=== PATIENT | male | born 1990 | race Caucasian/White ===

== ENCOUNTER 2020-11-19 11:57 | Emergency (ER) | payer SELFPAY ==
--- NOTE | ~2020-11-19 | CT_ITS ---
EXAMINATION: CT abdomen pelvis w con DATE: 11/19/2020 14:08 INDICATION: Epigastric abdominal pain. Nausea and vomiting. TECHNIQUE: Computed tomography (CT) of the abdomen and pelvis was performed with 100 mL Omnipaque 350 intravenous contrast. Automated exposure control and iterative reconstruction technique were employe d. The dose-length product was 374.47 mGy-cm. COMPARISON: None. FINDINGS: The visualized portions of the lung bases are clear without pneumonia or pleural effusion. The heart size is normal. No pericardial effusion. The liver, gallbladder, spleen, pancreas, adrenal glands, and kidneys are normal. There are no dilated loops of bowel. The appendix is normal. There ar e no pathologically enlarged lymph nodes. There is a small umbilical hernia containing fat. There is no free intraperitoneal fluid. There is mild lumbar spondylosis. IMPRESSION: 1. Small umbilical hernia containing fat. Reviewed, dictated and finalized at location A. INUOUS IMPROVEMENT DIRECTOR
[2020-11-19 12:21] VITALS: BP 125/61; PULSE 64; RESP 20; TEMP 36.1; O2SAT 100
[2020-11-19 12:48] LABS: Basophils Absolute Auto 0.1 K/mm3 (0.0-0.1); Basophils Percent Auto 0.4 % (0.2-1.2); Eosinophils Percent Auto 0.3 % (0-4.4); Hematocrit 44.2 % (42.0-52.0); Immature Granulocyte Absolute 0.03 K/mm3 (0.00-0.031); Immature Granulocyte Percent A 0.2 % (0-0.5); Lymphocytes Absolute Auto 1.11 K/mm3 (0.9-3.2); Lymphocytes Percent Auto 9.2 % (18.3-44.2); Mean Corpuscular HGB Conc 33.9 g/dl (32-36); Mean Corpuscular Hemoglobin 29.9 pg (26-34); Mean Platelet Volume 11.9 fl (7.4-10.4); Monocytes Absolute Auto 0.5 K/mm3 (0.1-0.6); Monocytes Percent Auto 4.5 % (2.6-8.5); Neutrophils Absolute Auto 10.3 K/mm3 (1.3-6.7); Neutrophils Percent Auto 85.4 % (45.5-73.1); Platelet Count Result 198 k/mm3 (150-375); Red Blood Count 5.02 M/mm3 (4.6-6.20); Red Cell Distribution Width 12.2 % (11.5-14.5)
[2020-11-19 12:52] LABS: Add Urine Microscopic? YES; Appearance Urine Clear (Clear); Bacteria Urine Trace /hpf; Bilirubin Urine Negative (Negative); Blood Urine Negative (Negative); Color Urine Yellow (Yellow); Glucose Urine UA Negative (Negative); Ketones Urine 1+ mg/dL (Negative); Leukocyte Esterase Ur Negative LEU/UL (Negative); Mucus Urine Heavy /lpf; Nitrate Urine Negative (Negative); Protein Urine 1+ mg/dL (Negative); RBC Urine 0-2 /hpf (0-2); Specific Grav Ur 1.025 (1.001-1.035); Urobilinogen Urine Negative mg/dL (<2.0); WBC Urine 0-3 /hpf
[2020-11-19 13:06] LABS: Alanine Aminotransferase 28 U/L (4-50); Albumin Level 4.6 g/dL (3.5-5.1); Alkaline Phosphatase 65 U/L (38-126); Anion Gap 7 mmol/L (8-16); Aspartate Amino Transferase 40 U/L (17-59); Bilirubin,Total 0.8 mg/dL (0.2-1.3); Blood Urea Nitrogen 12 mg/dL (9-20); Calcium 9.7 mg/dL (8.4-10.2); Carbon Dioxide 27 mmol/L (22-30); Chloride 107 mmol/L (98-107); Estimated CRCL calculation 113 ml/min; Estimated Glomerular Filt Rate > 60; Glucose 131 mg/dL (75-110); Lipase 53 U/L (23-300); Potassium 4.1 mmol/L (3.4-5.0); Sodium 141 mmol/L (137-145)
[2020-11-19] MEDS: PANTOPRAZOLE SODIUM IV 40 MG VIAL IV PUSH (13:45)
[2020-11-19] MEDS: SODIUM CHLORIDE 0.9% IV 1,000 ML 999 ML IV CONT (13:45)
[2020-11-19 14:24] VITALS: BP 129/63; PULSE 93; RESP 22; O2SAT 100
[2020-11-19] MEDS: ONDANSETRON INJ 4 MG/2 ML VIAL IV PUSH (14:24)
[2020-11-19] MEDS: BELLADONNA ALK/PHENOB ELIX 10 ML, MAG HYDROX/ALUMINUM HYD/SIMETH 30 ML, LIDOCAINE HCL 2... PO (14:26)
[2020-11-19 15:42] VITALS: BP 124/76; PULSE 56; RESP 20; O2SAT 100
[2020-11-19 16:58] VITALS: BP 124/76; PULSE 60; RESP 20; O2SAT 99
--- NOTE | 2020-11-19 18:20 | ED.ABDPAIN ---
HPI - Abdominal Pain General Chief Complaint: Abdominal Pain Stated Complaint: N/V ABD PAIN Time Seen by Provider: 11/19/20 12:42 Source: patient Mode of arrival: ambulatory Limitations: no limitations History of Present Illness HPI narrative: Patient presents with chief complaint of epigastric pain and multiple episodes of vomiting prior to arrival. Patient states that he has had issues with her stomach in the past for which he has taken a PPI but states he has not taken this for a long time. Patient states in the past he is also had stomach ulcers. Patient denies any coughing or vomiting blood. Patient denies any blood or mucus in his stool. Patient denies any fever, chills, diarrhea, headache. Patient denies alcohol intake or starting any new medications. Patient denies eating anything that he believes caused her symptoms. Related Data Allergies Allergy/AdvReac Type Severity Reaction Status Date / Time CITALOPRAM HYDROBROMIDE Allergy Unknown Anaphylaxis Uncoded 11/19/20 12:24 Review of Systems Review of Systems: Narrative: CONSTITUTIONAL: Denies fever, chills, or sweats. EYES: Denies visual changes, redness, or discharge. ENT: Denies rhinorrhea, congestion, sore throat, or otalgia. CARDIOVASCULAR: Denies chest pain, palpitations, or edema. RESPIRATORY: Denies cough or dyspnea. GASTROINTESTINAL: Denies abdominal pain, nausea, vomiting, or diarrhea. GENITOURINARY: Denies dysuria or hematuria. SKIN: Denies rash or itching. MUSCULOSKELETAL: Denies back pain, joint pain, or myalgia. NEUROLOGIC: Denies headache, numbness, dizziness, or weakness. PSYCHIATRIC: Denies anxiety or depression. [facility] Past Medical History Medical History (Updated 11/19/20 @ 18:23 by Leilani Sprague PA-C) Stomach ulcer Social History Social History Gender identity (if verbalized by the patient): Male Exam Narrative: Exam Narrative: CONSTITUTIONAL: Denies fever, chills, or sweats. EYES: Denies visual changes, redness, or discharge. ENT: Denies rhinorrhea, congestion, sore throat, or otalgia. CARDIOVASCULAR: Denies chest pain, palpitations, or edema. RESPIRATORY: Denies cough or dyspnea. GASTROINTESTINAL: Reports epigastric pain and vomiting and nausea denies diarrhea. GENITOURINARY: Denies dysuria or hematuria. SKIN: Denies rash or itching. MUSCULOSKELETAL: Denies back pain, joint pain, or myalgia. NEUROLOGIC: Denies headache, numbness, dizziness, or weakness. PSYCHIATRIC: Denies anxiety or depression. Course Vital Signs Vital signs: Vital Signs Temperature 97 F L 11/19/20 12:21 Pulse Rate 64 11/19/20 12:21 Respiratory Rate 20 11/19/20 12:21 Blood Pressure 125/61 11/19/20 12:21 Pulse Oximetry 100 11/19/20 12:21 Temperature 97 F L 11/19/20 12:21 Pulse Rate 60 11/19/20 16:58 Respiratory Rate 20 11/19/20 16:58 Blood Pressure 124/76 11/19/20 16:58 Pulse Oximetry 99 11/19/20 16:58 MDM - Abdominal Pain MDM Narrative Medical decision making narrative: Patient reports resolution of symptoms with GI cocktail, Protonix and fluids and Zofran. Patient CT does not show any emergent findings. Patient will be started on PPI and given Zofran for nausea. Patient was also given diet for gastritis. Patient instructed to follow-up with GI for further investigation into his symptoms which might include EGD. Patient verbalizes agreement and understanding of plan. Patient dates that he is ready to be discharged home at this time denies any other needs or concerns. Differential Diagnosis Differential diagnosis: Likely abdominal pain, acute appendicitis, calculus of kidney, constipation, diverticulitis, endometriosis, gastroenteritis, pancreatitis and small bowel obstruction Lab Data Result diagrams: 11/19/20 12:33 11/19/20 12:33 Labs: Lab Results 11/19/20 11/19/20 11/19/20 Range/Units 12:33 12:33 12:33 WBC 12.0 H (4.5-10.0) K/mm3 RBC 5.02 (4.6-6.20) M/mm3 Hgb 15.0 (14
== END 2020-11-19 17:00 | disposition home or self-care (01) ==
PROVIDERS: Emergency Provider Emergency Medicine; Referring Provider Emergency Medicine
DX: K29.00 Acute gastritis without bleeding (principal); K42.9 Umbilical hernia without obstruction or gangrene
CPT/HCPCS: 36415; 74177; 80053; 81001; 83690; 85025; 96361; 96374; 96375; 99284; A9270; C9113; J2405; J7030; Q9967

== ENCOUNTER 2023-12-21 10:20 | Emergency (ER) | payer OTHER, SELFPAY ==
[2023-12-21 10:31] VITALS: BP 140/64; PULSE 68; RESP 16; TEMP 37.1; O2SAT 100
--- NOTE | 2023-12-21 10:42 | ED.URI ---
HPI - URI/Sore Throat General Chief Complaint: Upper Respiratory Infection Stated Complaint: Sinus Problems and Chest Cold Time Seen by Provider: 12/21/23 10:35 Source: patient and RN notes reviewed Mode of arrival: ambulatory Limitations: no limitations History of Present Illness HPI Narrative: Patient presents today with a 10 day history of sore throat, ear pain, cough, congestion, fatigue, sinus pressure postnasal drainage. Currently rates his pain 1/10 and has been taking DayQuil, NyQuil, and Sudafed with mild relief. Denies any known sick contacts. Related Data Allergies Allergy/AdvReac Type Severity Reaction Status Date / Time CITALOPRAM HYDROBROMIDE Allergy Severe Anaphylaxis Uncoded 12/21/23 10:22 Review of Systems Review of Systems: CONSTITUTIONAL: Denies body aches, fever, chills, or sweats.+ fatigue EYES: Denies visual changes, redness, or discharge. ENT: Denies rhinorrhea. + congestion, sore throat, sinus pressure, postnasal drip, ear pain CARDIOVASCULAR: Denies chest pain, palpitations, or edema. RESPIRATORY: Denies dyspnea.+ cough GASTROINTESTINAL: Denies abdominal pain, nausea, vomiting, or diarrhea. GENITOURINARY: Denies dysuria or hematuria. SKIN: Denies rash, itching, or wounds. MUSCULOSKELETAL: Denies back pain, joint pain, or myalgia. NEUROLOGIC: Denies headache, numbness, tingling, or weakness. PSYCH: Denies depression or anxiety. [facility] Past Medical History Medical History Stomach ulcer Social History Social History Gender identity (if verbalized by the patient): Male Comments At time of signature, I have reviewed and agree with nursing past medical, surgical, social and family history unless otherwise noted. Please see nursing chart for further information. There is no relevant family history pertinent to the presenting complaint Exam Narrative: GENERAL: Well-appearing, well-nourished, and in no acute distress. HEAD: Normocephalic, atraumatic. EYES: EOMI. No redness or drainage. Conjunctivae normal. ENT: Mucous membranes pink and moist. Nares congested rhinorrhea. TMs normal bilaterally. Throat normal. Uvula midline. Frontal sinus tenderness. NECK: Normal AROM. Supple. No lymphadenopathy. CHEST: No respiratory distress. Clear to auscultation. HEART: Regular rate and rhythm. No murmur appreciated. EXTREMITIES: Normal range of motion. No edema. SKIN: Warm, dry, no rash. Capillary refill normal. Normal skin turgor. NEURO: No focal deficits. Alert and oriented x3. Gait steady. PSYCH: Normal affect. No signs of depression or anxiety. Course Course Level of Care: Express Care Visit Vital Signs Vital signs: Vital Signs Temperature 98.7 F 12/21/23 10:31 Pulse Rate 68 12/21/23 10:31 Respiratory Rate 16 12/21/23 10:31 Blood Pressure 140/64 12/21/23 10:31 Pulse Oximetry 100 12/21/23 10:31 Oxygen Delivery Room Air 12/21/23 10:31 Temperature 98.7 F 12/21/23 10:31 Pulse Rate 68 12/21/23 10:31 Respiratory Rate 16 12/21/23 10:31 Blood Pressure 140/64 12/21/23 10:31 Pulse Oximetry 100 12/21/23 10:31 Oxygen Delivery Room Air 12/21/23 10:31 Reviewed MDM - URI/Sore Throat MDM Narrative Medical decision making narrative: Patient will be treated with a course of Augmentin for sinusitis. No testing indicated at this time. Anticipatory guidance given. Differential Diagnosis Differential diagnosis: Likely upper respiratory infection, otitis media, sinusitis, viral infection, bronchitis and pharyngitis Critical Care Time Critical Care Time Critical Care Time: No Discharge Plan Discharge Clinical Impression: Sinusitis Qualifiers: Sinusitis location: frontal Chronicity: acute Recurrence: non-recurrent Qualified Code(s): J01.10 - Acute frontal sinusitis, unspecified Patient Disposition: Home, Self-Care C
== END 2023-12-21 10:47 | disposition home or self-care (01) ==
PROVIDERS: Emergency Provider Nurse Practitioner
DX: J01.10 Acute frontal sinusitis, unspecified (principal)
CPT/HCPCS: 99213; G0463

== ENCOUNTER 2024-04-12 08:05 | Emergency (ER) | payer OTHER, SELFPAY ==
--- NOTE | ~2024-04-12 | XR_ITS ---
EXAMINATION: XR wrist RT min 3V, XR hand RT min 3V DATE: 04/12/2024 08:30 INDICATION: Right hand and wrist pain post fall TECHNIQUE: 1. Posteroanterior, ulnar deviation, oblique, and lateral views of the right wrist were obtained. 2. Dorsal palmar, oblique and lateral views of the right hand were obtained. COMPARISON: None. FINDINGS: Alignment of the right hand and wrist is normal. No fracture identified. Joint spaces are normal. No focal soft tissue swelling. IMPRESSION: 1. Negative right hand and wrist radiographs. Reviewed, dictated and finalized at location A. IMPRESSION: 1. Negative right hand and wrist radiographs.
[2024-04-12 08:10] VITALS: BP 130/69; PULSE 72; RESP 16; TEMP 36.9; O2SAT 100
--- NOTE | 2024-04-12 08:22 | ED.GENADULT ---
HPI - General Adult General Chief complaint: Extremity Injury, Upper Stated complaint: hand injury Time Seen by Provider: 04/12/24 08:08 History of Present Illness HPI narrative: 33-year-old male presenting to the emergency department for evaluation of right hand pain. Patient reports he fell yesterday injured his right hand. Patient woke up this morning and noticed that he had swelling on the thenar eminence of his right hand. Patient denies any other pain or injury. Patient denies any paresthesia. Patient denies striking his head denies any loss of consciousness. Related Data Home Medications Medication Instructions Recorded Confirmed loratadine 10 mg tablet (Claritin) 10 mg PO DAILY 04/12/24 Allergies Allergy/AdvReac Type Severity Reaction Status Date / Time CITALOPRAM HYDROBROMIDE Allergy Severe Anaphylaxis Uncoded 04/12/24 08:13 Review of Systems Review of Systems: All systems reviewed & are unremarkable except as noted in HPI and below PMFSH Past Medical History Medical History Stomach ulcer Social History Social History Gender identity (if verbalized by the patient): Male Exam Narrative: APPEARANCE: Well appearing, no pain, no distress, well-nourished. HEAD: normocephalic, atraumatic. EYES: PERRLA/EOMI, conjunctivae clear. NOSE: Normal no drainage EARS:TMS clear with good light reflex. THROAT: Pharynx clear, no exudate. NECK: Supple. No adenopathy, no masses. RESPIRATORY: Airway patent, respirations nonlabored. Clear to auscultation bilaterally, no rales, rhonchi, wheezing. CARDIOVASCULAR: Regular rate and rhythm without murmurs rubs or gallops. ABDOMINAL: Soft, nontender, nondistended, normal bowel sounds MUSCULOSKELETAL: Swelling of the right thenar eminence, snuffbox tenderness NEURO: Alert. Cranial nerves II through XII intact. Good gait. Good coordination SKIN: Warm, dry. Normal Color Course Vital Signs Vital signs: Vital Signs Temperature 98.4 F 04/12/24 08:10 Pulse Rate 72 04/12/24 08:10 Respiratory Rate 16 04/12/24 08:10 Blood Pressure 130/69 04/12/24 08:10 Pulse Oximetry 100 04/12/24 08:10 Oxygen Delivery Room Air 04/12/24 08:10 Temperature 98.4 F 04/12/24 08:10 Pulse Rate 72 04/12/24 08:10 Respiratory Rate 16 04/12/24 08:58 Blood Pressure 130/69 04/12/24 08:10 Pulse Oximetry 100 04/12/24 08:10 Oxygen Delivery Room Air 04/12/24 08:10 Medical Decision Making MDM Narrative Medical decision making narrative: 33-year-old male presents emergency department for evaluation for right hand pain. Patient had tenderness in the snuffbox with palpation. X-rays were negative for acute fracture dislocation. Patient did have reproducible snuffbox tenderness to palpation, concern for occult scaphoid fracture. Patient was placed in a thumb spica encouraged close follow-up with Plastic surgery. All questions concerns were addressed patient and family are comfortable the plan with discharge have close follow-up. Differential Diagnosis Differential Diagnosis: Wrist fracture, hand fracture, hand contusion, wrist sprain Vital Signs Vital Signs: Vital Signs Temperature 98.4 F 04/12/24 08:10 Pulse Rate 72 04/12/24 08:10 Respiratory Rate 16 04/12/24 08:10 Blood Pressure 130/69 04/12/24 08:10 Pulse Oximetry 100 04/12/24 08:10 Oxygen Delivery Room Air 04/12/24 08:10 Temperature 98.4 F 04/12/24 08:10 Pulse Rate 72 04/12/24 08:10 Respiratory Rate 16 04/12/24 08:58 Blood Pressure 130/69 04/12/24 08:10 Pulse Oximetry 100 04/12/24 08:10 Oxygen Delivery Room Air 04/12/24 08:10 Imaging Data Radiologist's impression: Impressions Hand X-Ray 04/12/24 08:39 IMPRESSION: 1. Negative right hand and wrist radiographs. Wrist X-Ray 04/12/24 08:39 IMPRESSION: 1. Negativ
[2024-04-12 08:58] VITALS: RESP 16
== END 2024-04-12 09:01 | disposition home or self-care (01) ==
PROVIDERS: Emergency Provider Emergency Medicine
DX: S60.221A Contusion of right hand, initial encounter (principal); W19.XXXA Unspecified fall, initial encounter
CPT/HCPCS: 29125; 73110; 73130; 99283

== ENCOUNTER 2024-04-23 11:57 | Outpatient (CLI) | payer OTHER, SELFPAY ==
--- NOTE | ~2024-04-23 | XR_ITS ---
XR hand RT min 3V Ordering provider: Cristhian Celestin MD History: . FALL 2WKS AGO, PAIN BASE OF THUMB, PALM OF HAND . Comparison: April 12, 2024 FINDINGS: BONES: No acute fracture or dislocation. JOINT SPACES: Normal. SOFT TISSUES: Normal. IMPRESSION: No acute osseous abnormality right hand. Reviewed, dictated and finalized at location A.
== END 2024-04-23 11:58 | disposition home or self-care (01) ==
LOC: ANHIMG 12:00
PROVIDERS: Visit Provider Plastic Surgery
DX: M79.641 Pain in right hand (principal)
CPT/HCPCS: 73130

== ENCOUNTER 2025-09-14 12:06 | Emergency (ER) | payer OTHER, SELFPAY ==
--- NOTE | ~2025-09-14 | XR_ITS ---
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 Findings: Postsurgical changes in the fifth metatarsal head, no fracture or subluxation is identified. No significant degenerative changes. Soft tissues unremarkable. Impression: No acute fracture or malalignment. Reviewed, dictated and finalized at location P. BINDING FITTER AND REPAIRER Impression: No acute fracture or malalignment.
[2025-09-14 12:14] VITALS: BP 115/71; PULSE 84; RESP 16; TEMP 36.4; O2SAT 98
--- NOTE | 2025-09-14 12:21 | ED_ITS ---
HPI - Extremity Injury (Lower) General Chief Complaint: Extremity Injury, Lower Stated Complaint: R Toe Time Seen by Provider: 09/14/25 12:36 Source: patient and RN notes reviewed Mode of arrival: ambulatory Limitations: no limitations History of Present Illness HPI Narrative: 34-year-old male presents with concern for pain to the 4th digit of the right foot. Reports he wearing steel toe shoes when he kicked bucket at work. Reports he started having pain to the toe. Reports the pain has gotten a little bit worse, the distal toe is red and swollen. He reports bruising to the foot below the 4th digit. He has been using keisha-taped an ice. He has also been taking ever MD complaint: foot injury Related Data Allergies Allergy/AdvReac Type Severity Reaction Status Date / Time citalopram (From [facility]) Allergy Severe Anaphylaxis Verified 09/14/25 12:16 Review of Systems Review of Systems: CONSTITUTIONAL: Denies malaise, chills, sweats, or fever. SKIN: Denies rash or itching, open skin, laceration, abrasion, redness, warmth MUSCULOSKELETAL: Reports swelling, pain to the 4th digit the right. NEUROLOGIC: Denies numbness, weakness All systems reviewed & are unremarkable except as noted in HPI and below PMFSH Past Medical History Medical History Stomach ulcer Social History Social History (Updated 04/23/24 @ 11:32 by Meli Guzman MA) Smoking status: Never smoker Tobacco type: e-cigarettes/vaping Gender identity (if verbalized by the patient): Male Comments At time of signature, agree with nursing past medical, surgical, social and family history. There is no relevant family history pertinent to the presenting complaint Exam Narrative: GENERAL: Well-appearing, well-nourished, and in no acute distress. HEAD: Normocephalic, atraumatic. EYES: PERRLA, conjunctivae clear NECK: Supple. CHEST: Speaks in full sentences. No respiratory distress. HEART: Regular rate and rhythm. Normal and equal peripheral pulses. EXTREMITIES: Sore throat the right foot has grossly normal strength and sensation, grossly normal range of motion. Mild edema with proximal foot ecchymosis. Normal sensation with sensitivity to light touch and pain. General digit tenderness, distal tenderness to light touch. No open wounds, no skin tenting, no devitalized tissue or atrophy, no trophic changes, no obvious deformity, alignment normal, nearby joints and structures intact. Distal pulses palpable and equal bilaterally, skin warm, dry, pink. Capillary refill less than 3 seconds. SKIN: Warm, dry, no rash. Erythema, warmth, edema and surrounding the nail bed of the 4th digit of the right foot without drainage NEURO: Alert and oriented x3. PSYCH: Normal mood and affect Course Course Emergency Course: Patient is aware of diagnosis, understands and agrees to treatment plan. Anticipatory guidance given. Patient agrees to follow-up as directed and is aware of reasons to seek care at the emergency department. Portions of this record may have been created with voice recognition software Level of Care: Express Care Visit Vital Signs Vital signs: Vital Signs Temperature 97.6 F 09/14/25 12:14 Pulse Rate 84 09/14/25 12:14 Respiratory Rate 16 09/14/25 12:14 Blood Pressure 115/71 09/14/25 12:14 Pulse Oximetry 98 09/14/25 12:14 Oxygen Delivery Room Air 09/14/25 12:14 Temperature 97.6 F 09/14/25 12:14 Pulse Rate 84 09/14/25 12:14 Respiratory Rate 16 09/14/25 12:14 Blood Pressure 115/71 09/14/25 12:14 Pulse Oximetry 98 09/14/25 12:14 Oxygen Delivery Room Air 09/14/25 12:14 Reviewed. MDM - Extremity Injury (Lower) MDM Narrative Medical decision making narrative: The patient was evaluated by myself in the [facility] care. History is obtained from patient who is an independent historian and physical exam was performed.? Available medical records were reviewed at this time. ? Exam findings show no acute concerns or changes; patient is non-toxic appearing and is in no distress. Patient is appropriate for outpatient treatment and follow-up. ? I have evaluated and discussed social determinants of health with the patient that could potentially impact subsequent diagnosis and treatment plans. ? Patients injury and pain is consistent with musculoskeletal etiology. No signs of neurological or vascular compromise on exam. Compartments and tissues are soft without signs of compartment syndrome. Pain is felt appropriate for further evaluation on an outpatient basis. Imaging Data My impression: My x-ray state Radiologist's impression: EXAMINATION: XR foot RT min 3V, 09/14/2025 12:22 MANAGER CARGO HISTORY: 4TH toe pain, proximal foot pain COMPARISON: No comparisons available. Findings: Postsurgical changes in the fifth metatarsal head, no fracture or subluxation is identified. No significant degenerative changes. Soft tissues unremarkable. Impression: No acute fracture or malalignment. Critical Care Time Critical Care Time Critical Care Time: No Discharge Plan Discharge Clinical Impression: Paronychia, Contusion of foot Patient Disposition: Home Condition: Stable Instructions: Antibiotic Form, Paronychia (ED) Additional Instructions: Avoid activities that cause pain until the pain subsides. Elevate above heart Orthopedic shoe as directed for comfort for the next 5-7 days Tylenol for lesser pain Ibuprofen regularly for the next 2-3 days for the inflammation Soak your nail: Soak your nail in a mixture of equal parts vinegar and water 3 or 4 times each day. This will help decrease inflammation. Apply a warm compress: Soak a washcloth in warm water and place it on your nail. This will help decrease inflammation. Elevate: Raise your nail above the level of your heart as often as you can. This will help decrease swelling and pain. Prop your nail on pillows or blankets to keep it elevated comfortably. Use lotion: Apply lotion after you wash your hands. This will prevent your skin from becoming too dry. Please follow-up with your primary care doctor in the next 1-2 days. If you cannot follow-up with your primary care doctor please go to the ED for any urgent issues. 2) If you have any worsening of symptoms or any other concerns please go to the ED immediately. 3) Please take medications as prescribed andcontinue taking your home medications as usual. Follow up with your primary care provider if the condition is not improving within 1 week. If the condition worsens with numbness, tingling, decrease sensation with weakness seek treatment in the emergency room immediately. Patient Language: Tuvaluan Prescriptions: New sulfamethoxazole-trimethoprim 800-160 mg tablet 1 tablet PO Q12H 7 Days Qty: 14 0RF Follow-up/Referrals: UNKNOWN,DOCTOR [Primary Care Provider] Stand Alone Forms: Work/School Release IP Time of Disposition: 12:45
--- OUTSIDE RECORDS SUMMARY | 2025-09-14 13:25 | XMS_ITS | Clinical Summary ---
Author Organization [facility] Address [facility] [place] [address] Care Team Providers Care School Age Teacher Name Role Phone Letty Jacinto NP Primary Care Provider Allergies Active Allergy Reactions Criticality Noted Date Comments Citalopram Throat swelling 02/20/2022 Medications ondansetron 4 MG disintegrating tabletIndications:P eptic ulcer disease Take 1 tablet (4 mg total) by mouth every 8 (eight) hours as needed for Nausea. 30 tablet 2 2 Active dicyclomine 20 MG tabletIndications:P eptic ulcer disease Take 1 tablet (20 mg total) by mouth every 6 (six) hours. 90 tablet 1 2 Active pantoprazole EC 40 MG tabletIndications:P eptic ulcer disease Take 1 tablet (40 mg total) by mouth daily. 30 tablet 2 2 Active amitriptyline 25 MG tabletIndications:P rimary insomnia Take 1 tablet (25 mg total) by mouth nightly at bedtime. 30 tablet 2 2 Active Active Problems Problem Noted Date Diagnosed Date Peptic ulcer disease 02/20/2022 Immunizations Immunization Administration Dates Next Due Tdap (Generic) 06/29/2016 Social History Tobacco Use Types Packs/Day Years Used Date Smoking Tobacco: Former Smokeless Tobacco: Never Alcohol Use Standard Drinks/Week Comments Never 0 (1 standard drink = 0.6 oz pur e alcohol) 2.5 years no alcohol PHQ-2 Answer Date Recorded PHQ-2 Score - If the patient scores above 3, please move on to questions 3-9 0 02/20/2022 Sex and Gender Information Value Date Recorded Sex Assigned at Not on file Legal Sex Male 7:59 AM CDT Gender Identity Male 02/20/2022 6:38 AM CDT Sexual Orientation Straight 02/20/2022 6: 38 AM CDT Last Filed Vital Signs Vital Sign Reading Time Taken Comments Blood Pressure 106/58 02/27/2022 3:06 PM CDT Pulse 69 02/27/2022 3:06 PM CDT Temperature 36.7 C (98.1 F) 02/27/2022 3:06 PM CDT Respiratory Rate 16 02/27/2022 3:06 PM CDT Oxygen Saturation 97% 02/27/2022 3:06 PM CDT Inhaled Oxygen Concentration - - Weight 88.9 kg (196 lb) 02/27/2022 3:06 PM CDT Height 193 cm (6' 4) 02/27/2022 3:06 PM CDT Body Mass Index 23.86 02/27/2022 3:06 PM CDT Plan of Treatment Health Maintenance Due Date Last Done Comments Annual Physical 1992 Hepatitis C 2007 Hepatitis B Vaccines (1 of 3 - 19+ 3-dose series) 2008 HPV Vaccines (1 - 3-dose SCD M series) 2016 COVID-19 Vaccine (1 - 2024-2 6 season) 2025 Influenza Adult (#1) 2025 DTaP, Tdap and Td Vaccines ( 2 - Td or Tdap) 06/29/2026 06/29/2016 Hepatitis A Vaccines Aged Out No long er eligible based on patient's age to complete this topic Meningococcal B Vaccine Aged Out No l onger eligible based on patient's age to complete this topic Meningococcal Vaccine Aged Out No jose nick eligible based on patient's age to complete this topic Pneumococcal Vaccine: Pediat rics (0 to 5 Years) and At-Risk Patients (6 to 49 Years) Aged Out No longer eligi ble based on patient's age to complete this topic RSV Immunizations Under 20 Months Aged Out No longer eligible based on patient's age to complete this topic Care Teams School Age Teacher Relationship Specialty [place] [id number] [address] PCP - General Nurse Practitioner Family 02/16/22
== END 2025-09-14 12:49 | disposition home or self-care (01) ==
PROVIDERS: Emergency Provider Nurse Practitioner
DX: L03.031 Cellulitis of right toe (principal); S90.31XA Contusion of right foot, initial encounter; W22.8XXA Striking against or struck by other objects, initial encounter; F17.290 Nicotine dependence, other tobacco product, uncomplicated
CPT/HCPCS: 73630; 99213; G0463

== ENCOUNTER 2025-09-21 12:19 | Emergency (ER) | payer OTHER, SELFPAY ==
[2025-09-21 12:27] VITALS: BP 120/90; PULSE 90; RESP 16; TEMP 36.9; O2SAT 100
--- NOTE | 2025-09-21 12:38 | ED_ITS ---
HPI - General Adult General Chief complaint: Wound/Laceration Stated complaint: R toe pain Time Seen by Provider: 09/21/25 12:47 Source: patient, RN notes reviewed and old records reviewed Mode of arrival: ambulatory Limitations: no limitations History of Present Illness HPI narrative: 34-year-old male presents to the [facility] with continued pain to the right 4th toe. Patient was evaluated on September 14, x-ray done which was negative. Had some redness and swelling which he reports is better but still having discomfort. States he does have a day of Bactrim left per medical record patient was Related Data Allergies Allergy/AdvReac Type Severity Reaction Status Date / Time citalopram (From Celexa) Allergy Severe Anaphylaxis Verified 09/21/25 12:28 Review of Systems Review of Systems: All systems reviewed & are unremarkable except as noted in HPI and below Constitutional: Constitutional: Reports no additional constitutional complaints Musculoskeletal: Musculoskeletal: Reports as per HPI, Reports arthralgias and Denies numbness Integumentary/Breasts: Skin/Breast: Reports system reviewed and no additional complaints, except as docu PMFSH Past Medical History Medical History Stomach ulcer Social History Social History Smoking status: Never smoker Tobacco type: e-cigarettes/vaping Gender identity (if verbalized by the patient): Male Comments At the time of my signature, I reviewed and agree with the nursing past medical, surgical, social, and family history. There is no relevant family history pertinent to the patient complaint. Exam Const: General: cooperative, healthy appearing, comfortable, no acute distress, well developed, alert and well nourished Nutritional Appearance: well nourished Orientation/consciousness: patient oriented x3 Limitations: no limitations HENMT: Head: normal to inspection Eyes: General: appearance normal, both eyes and all related structures Alignment and Position: alignment normal Neck: Neck: normal visual inspection, full ROM, no lymphadenopathy and no meningeal signs Chest: Chest palpation & inspection: normal inspection of the chest Resp: Effort & Inspection: normal respiratory effort and able to speak in complete sentences Cardio: Rate: regular rate Skin: General skin exam: normal color and no rashes or lesions noted Neuro: General: patient oriented x3, gait normal, moves all extremities and no meningeal signs Cognition (Neuro): normal cognition Speech: normal speech Gait exam (Neuro): Normal gait present Extrem: General: normal to inspection, full ROM, capillary refill normal and normal gait Right lower extremity: foot Details: tenderness Location: of another digit Location: the 4th digit, toes with normal ROM, no edema and vascular exam Details: dorsalis pedis pulse present and normal capillary refill; no unusual warmth, no abrasion, no laceration and no ecchymosis Psych: Appearance: grossly normal and well kempt Mental Status: mental status grossly normal Speech and movement: Normal speech and movement present and Clear speech present Affect: normal affect Attitude: cooperative Course Course Level of Care: Express Care Visit Vital Signs Vital signs: Vital Signs Temperature 98.5 F 09/21/25 12:27 Pulse Rate 90 09/21/25 12:27 Respiratory Rate 16 09/21/25 12:27 Blood Pressure 120/90 09/21/25 12:27 Pulse Oximetry 100 09/21/25 12:27 Oxygen Delivery Room Air 09/21/25 12:27 Temperature 98.5 F 09/21/25 12:27 Pulse Rate 90 09/21/25 12:27 Respiratory Rate 16 09/21/25 12:27 Blood Pressure 120/90 09/21/25 12:27 Pulse Oximetry 100 09/21/25 12:27 Oxygen Delivery Room Air 09/21/25 12:27 reviewed MDM MDM Narrative Medical decision making narrative: patient sitting in exam room. Patient is nontoxic, vitals Stable. Patient presents with 4th toe continued discomfort. offered another x-ray, patient declined states that it is feeling better. No swelling or redness noted. Just tender to the entire 4th toe. Discharge instructions reviewed with patient, as well as provided in writing per nursing staff. The instructions also include specific and strict return/GO TO THE ER as well as f/u information. All questions have been answered, and the patient deny any further questions w ith discharge and discharge plan. Some parts of this dictation were generated by voice recognition software and may contain typographical and/or grammatical inaccuracies. Differential Diagnosis Differential Diagnosis: Differential diagnostic considerations for lower extremity injury include puncture wound of foot, fracture of toe, . Medical Records I have reviewed the following patient records and this information was taken into consideration when formulating the assessment and plan.: previous labs and previous clinic visits Discharge Plan Discharge Clinical Impression: Pain in toe of right foot Patient Disposition: Home Condition: Stable Instructions: Arthralgia (ED) Additional Instructions: Wear good supportive shoes at all times. Ice should be applied to help reduce swelling. It can be used for 20 to 30 minutes, every 2-3 hours while awake. Do not apply ice directly to your skin. You can alternate ibuprofen 600mg and Tylenol 650mg every 4 hours as needed for pain Please schedule a follow-up visit with your personal physician for further evaluation and treatment within 2 weeks especially if symptoms persist. If you are having a hard time finding a physician please call our [facility] liaison at [phone]. follow-up with podiatry For new or worsening symptoms go directly to the emergency room Patient Language: German Prescriptions: No Action sulfamethoxazole-trimethoprim 800-160 mg tablet 1 tablet PO Q12H 7 Days Qty: 14 0RF Follow-up/Referrals: Marino Tamez Jr., DPM [Physician, Podiatry] - 1 Week Clinical Impression: Pain in toe of right foot Alonso Salazar MD [Physician, Family Practice] PHYSICIAN,MEDICAL INSTRUMENT TECHNICIAN [Primary Care Provider, Internal Medicine] Julius Zambrano DPM [Physician, Podiatry] Stand Alone Forms: Work/School Release IP Time of Disposition: 13:10
== END 2025-09-21 13:14 | disposition home or self-care (01) ==
PROVIDERS: Emergency Provider Nurse Practitioner
DX: M79.674 Pain in right toe(s) (principal)
CPT/HCPCS: 99212; G0463